=== PATIENT | female | born 2000 | race African-American/Black ===

== ENCOUNTER → 2022-07-27 | Outpatient (REF) | payer OTHER | LOC: M LABWUC 16:20 | PROVIDERS: ATTEND Obstetrics & Gynecology | DX: N91.2 Amenorrhea, unspecified (principal) ==

== ENCOUNTER → 2022-08-05 | Outpatient (CLI) | payer OTHER, BC | LOC: M WHC 14:57 | PROVIDERS: ATTEND Obstetrics & Gynecology | DX: O32.1XX0 Maternal care for breech presentation, not applicable or unspecified (principal); Z3A.19 19 weeks gestation of pregnancy ==